=== PATIENT | female | born 1970 | race Caucasian/White ===

== ENCOUNTER 2016-12-16 10:38 | Emergency (ER) | payer SELFPAY ==
[2016-12-16] VITALS (11 sets, daily range): BP systolic 98–142; BP diastolic 52–81
[~2016-12-16] VITALS: Ht 167.6 cm; Wt 81.6 kg
[2016-12-16] MEDS ORDERED: Haloperidol 5mg/ml Inj IM ONE ×2 (10:45→11:30)
[2016-12-16] MEDS ORDERED: LORazepam Inj 2mg/ml 1ml IM ONE (10:45)
[2016-12-16] MEDS ORDERED: DiphenhydrAMINE 50mg/ml Inj IM ONE (10:45)
[2016-12-16 12:00] LABS: BASOPHILS % (AUTO) 1.9 % (0.0-2.0); EOSINOPHILS % (AUTO) 1.9 % (0.0-3.0); LYMPHOCYTES % (AUTO) 42.6 % (20.0-45.0); MEAN CORPUSCULAR HEMOGLOBIN 31.1 PG (27.0-31.0); MEAN CORPUSCULAR HGB CONC 32.7 G/DL (32.0-36.0); MEAN CORPUSCULAR VOLUME 95 FL (80-99); MEAN PLATELET VOLUME 5.8 FL (6.5-10.1); MONOCYTES % (AUTO) 5.5 % (1.0-10.0); NEUTROPHILS % (AUTO) 48.1 % (45.0-75.0); PLATELET COUNT 247 K/UL (150-450); RED BLOOD COUNT 4.26 M/UL (4.20-5.40); RED CELL DISTRIBUTION WIDTH 12.9 % (11.6-14.8); WHITE BLOOD COUNT 5.3 K/UL (4.8-10.8)
[2016-12-16 12:10] LABS: ACETAMINOPHEN < 10 ug/mL (10-30); ALANINE AMINOTRANSFERASE 13 U/L (3-33); ALBUMIN/GLOBULIN RATIO 1.7 (1.0-2.7); ALCOHOL 198 mg/dL; ANION GAP 19 (5-15); ASPARTATE AMINO TRANSFERASE 17 U/L (5-40); CALCIUM 8.7 mg/dL (8.6-10.2); CARBON DIOXIDE 22 mEQ/L (20-30); CHLORIDE 104 mEQ/L (98-107); CREATININE 0.7 mg/dL (0.5-0.9); GLOMERULAR FILTRATION RATE > 60 mL/min (>60); HEMOLYSIS 3; POTASSIUM 3.9 mEQ/L (3.4-4.9); SODIUM 145 mEQ/L (135-145); TOTAL PROTEIN 6.8 g/dL (6.6-8.7)
[2016-12-16 12:36] LABS: APPEARANCE,URINE CLEAR; KETONES,URINE NEGATIVE (NEGATIVE); LEUKOCYTE ESTERASE ,URINE NEGATIVE (NEGATIVE); NITRITE,URINE NEGATIVE (NEGATIVE); PH,URINE 6 (4.5-8.0); PROTEIN,URINE NEGATIVE (NEGATIVE); UROBILINOGEN,URINE NORMAL MG/DL (0.0-1.0)
--- NOTE | 2016-12-16 14:31 | Emergency Room Report ---
History of Present Illness General Chief Complaint: Behavioral Complaint Source: Medical Record Present Illness HPI Police were called to rehabilitation facility. This patient apparently drank last night. Because of this she was told she could not stay there. This caused her to be agitated and out of control. Paramedics were summoned to transport the patient. Unable to start an IV but state that her Accu-Chek was normal. The patient denies doing any other drugs or being suicidal. She states she did drink alcohol. She states that she needs to be discharged as she needs to take care of her son. Refusing to answer many other questions but denies any pain. Denies head trauma also. Allergies: Coded Allergies: No Known Allergies (Unverified , 12/16/16) Patient History Limited by: medical condition Past Medical History: see triage record Social History: Reports: alcohol use, Denies: drug use Social History Narrative From rehabilitation facility Last Menstrual Period: unknow Now: No : 1 Para: 1 Reviewed Nursing Documentation: PMH: Agreed, PSxH: Agreed Nursing Documentation-PMH History Of Psychiatric Problem: Yes - Schezo, ETOH abuse Review of Systems All Other Systems: limited Physical Exam Vital Signs Date Time Temp Pulse Resp B/P Pulse Ox O2 Delivery O2 Flow Rate FiO2 12/16/16 10:33 97.9 98 18 136/78 99 Room Air Sp02 EP Interpretation: reviewed, normal General Appearance: alert, GCS 15, other - agitated and violent with staff Head: normocephalic, atraumatic Eyes: bilateral eye normal inspection ENT: moist mucus membranes Neck: supple Respiratory: lungs clear, normal breath sounds Cardiovascular #1: regular rate, rhythm Cardiovascular #2: 2+ radial (R) Gastrointestinal: normal inspection, normal bowel sounds, non tender, no mass, non-distended Musculoskeletal: back normal, gait/station normal, normal range of motion Neurologic: alert, oriented x3, motor strength/tone normal, DTRs symmetric, sensory intact, speech normal Psychiatric: no suicidal/homicidal ideation, other - agitated, denial, poor insight Skin: normal inspection, warm/dry, other - sl plethoric Medical Decision Making Diagnostic Impression: Primary Impression: Agitation Additional Impression: Acute alcohol intoxication Qualified Codes: F10.129 - Alcohol abuse with intoxication, unspecified ER Course Patient presents with psychosis and violent behavior stating that she allegedly drank alcohol. Differential includes by substance abuse, alcohol intoxication, exacerbation of depression, electrolyte abnormality amongst others. The patient is out of control and needs to be sedated and restrained initially. After sedating the patient she will receive IV hydration and also undergo laboratory evaluation, EKG. Out of restraints and calm. Sedated but answers yes and no occasionally - 15: 05. Signed out to Dr. Yeung @ 16:27. Laboratory Tests Test 12/16/16 11:40 12/16/16 12:00 White Blood Count 5.3 K/UL (4.8-10.8) Red Blood Count 4.26 M/UL (4.20-5.40) Hemoglobin 13.3 G/DL (12.0-16.0) Hematocrit 40.6 % (37.0-47.0) Mean Corpuscular Volume 95 FL (80-99) Mean Corpuscular Hemoglobin 31.1 PG (27.0-31.0) H Mean Corpuscular Hemoglobin Concent 32.7 G/DL (32.0-36.0) Red Cell Distribution Width 12.9 % (11.6-14.8) Platelet Count 247 K/UL (150-450) Mean Platelet Volume 5.8 FL (6.5-10.1) L Neutrophils (%) (Auto) 48.1 % (45.0-75.0) Lymphocytes (%) (Auto) 42.6 % (20.0-45.0) Monocytes (%) (Auto) 5.5 % (1.0-10.0) Eosinophils (%) (Auto) 1.9 % (0.0-3.0) Basophils (%) (Auto) 1.9 % (0.0-2.0) Sodium Level 145 mEQ/L (135-145) Potassium Level 3.9 mEQ/L (3.4-4.9) Chloride Level 104 mEQ/L (98-107) Carbon Dioxide Level 22 mEQ/L (20-30) Anion Gap 19 (5-15) H Blood Urea Nitrogen 15 mg/dL (7-23) Creatinine 0.7 mg/dL (0.5-0.9) Estimate Glomerular Filtration Rate > 60 mL/min (>60) Glucose Level 125 mg/dL (74-106) H Calcium Level 8.7 mg/dL (8.6-10.2) Total Bilirubin 0.2 mg/dL (0.0-1.2) Aspartate Amino Transferase (AST) 17 U/L (5-40) Alanine Aminotransferase (ALT) 13 U/L (3-33) Alkaline Phosphatase 65 U/L (35-104) Total Creatine Kinase 75 U/L (26-140) Total Protein 6.8 g/dL (6.6-8.7) Albumin 4.3 g/dL (3.5-5.2) Globulin 2.5 g/dL Albumin/Globulin Ratio 1.7 (1.0-2.7) Salicylates Level < 1 mg/dL (10-30) L Acetaminophen Level < 10 ug/mL (10-30) L Serum Alcohol 198 mg/dL Urine Color Pale yellow Urine Appearance Clear Urine pH 6 (4.5-8.0) Urine Specific [place] 1.010 (1.005-1.035) Urine Protein Negative (NEGATIVE) Urine Glucose (UA) Negative (NEGATIVE) Urine Ketones Negative (NEGATIVE) Urine Occult Blood Negative (NEGATIVE) Urine Nitrite Negative (NEGATIVE) Urine Bilirubin Negative (NEGATIVE) Urine Urobilinogen Normal MG/DL (0.0-1.0) Urine Leukocyte Esterase Negative (NEGATIVE) Urine HCG, Qualitative Negative Urine Opiates Screen Negative (NEGATIVE) Urine Barbiturates Screen Negative (NEGATIVE) Phencyclidine (PCP) Screen Negative (NEGATIVE) Urine Amphetamines Screen Negative (NEGATIVE) Urine Benzodiazepines Screen Negative (NEGATIVE) Urine Cocaine Screen Negative (NEGATIVE) Urine Marijuana (THC) Screen Negative (NEGATIVE) EKG Diagnostic Results Rate: normal Rhythm: NSR ST Segments: no acute changes Rhythm Strip Diag. Results EP Interpretation: yes Rhythm: NSR, no PVC's, no ectopy Last Vital Signs Date Time Temp Pulse Resp B/P Pulse Ox O2 Delivery O2 Flow Rate FiO2 12/17/16 07:23 98.6 78 18 140/82 98 Room Air Status: improved Referrals: NOT CHOSEN IPA/,REFERRING (PCP) Vijay Washington M.D. Dec 16, 2016 14:31
[2016-12-17 01:00] VITALS: BP 120/56
[2016-12-17 02:50] VITALS: BP 110/60
[2016-12-17 05:00] VITALS: BP 105/65
[2016-12-17 07:23] VITALS: BP 140/82
[2016-12-17 10:39] VITALS: BP 135/75
[2016-12-17 13:50] VITALS: BP_SYST 135; BP_SYST 140; BP_DIAS 75; BP_DIAS 78
--- NOTE | 2016-12-20 22:37 | Cardiology Report ---
APPROVED REPORT EKG Measurement Heart [id number] Normal sinus rhythm Low voltage QRS Cannot rule out Anterior infarct, age undetermined Abnormal ECG
== END 2016-12-17 13:57 | disposition home or self-care (01) ==
LOC: EDBD 10:38 → EMR 10:45
DX: R45.1 Restlessness and agitation (principal); F10.129 Alcohol abuse with intoxication, unspecified
CPT/HCPCS: 36415; 80053; 80300; 81003; 81025; 82550; 85025; 93005; 99283; G0480; J1200; J1630; 80329